=== PATIENT | female | born 1960 | race Caucasian/White ===

== ENCOUNTER 2021-11-12 10:00 | Outpatient (CLI) | payer MEDICAID, SELFPAY | END 2021-11-12 11:00 | disposition home or self-care (01) | LOC: SLB 10:00 → EDSTATUS 11-14 08:45 | PROVIDERS: ATTEND Internal Medicine | DX: U07.1 COVID-19 (principal); Z01.812 Encounter for preprocedural laboratory examination; K55.9 Vascular disorder of intestine, unspecified | CPT/HCPCS: 36415 ==